=== PATIENT | male | born 1975 | race Caucasian/White ===

== ENCOUNTER → 2018-02-24 07:14 | Outpatient (CLI) | payer OTHER, SELFPAY ==
[2018-02-24 09:12] LABS: Add Manual Diff / Slide Review NO; Basophils Percent Auto 0.7 % (0-2); Eosinophils Percent Auto 8.5 % (2-4); Hematocrit 43.8 % (41-53); Hemoglobin 14.9 g/dL (13.5-17.5); Lymphocytes Percent Auto 34.2 % (25-40); Monocytes Percent Auto 12.2 % (3-14); Neutrophils Absolute Auto 2000 /uL (3000-5900); Neutrophils Percent Auto 44.4 % (50-75); Platelet Count 210 X10^3/uL (150-400); Red Blood Cell Count 4.81 X10^6/uL (4.5-5.9); Red Cell Distribution Width 13.3 % (11.6-14.8); White Blood Cell Count 4.6 X10^3/uL (4.5-11.0)
[2018-02-24 09:36] LABS: Alanine Aminotransferase 44 IU/L (21-72); Albumin 4.3 g/dL (3.5-5.0); Albumin Globulin Ratio 1.6 (1.0-2.8); Alkaline Phosphatase 63 U/L (38-126); Aspartate Aminotransferase 28 IU/L (17-59); BUN Creatinine Ratio 17.8 (6-22); Bilirubin Total 0.8 mg/dL (0.2-1.3); Blood Urea Nitrogen 16 mg/dL (9-20); Calcium 8.8 mg/dL (8.4-10.2); Carbon Dioxide 29 mmol/L (22-32); Chloride 103 mmol/L (98-107); Cholesterol 172 mg/dL (140-199); Estimated Glomerular Filt Rate > 60.0 mL/min (>60); Globulin 2.7 g/dL (1.7-4.1); Glucose 94 mg/dL (70-100); HDL Cholesterol 54 mg/dL (40-60); HEMOLYSIS < 15 (0-50); LDL Cholesterol Calculated 107 mg/dL (<100); Potassium 4.1 mmol/L (3.4-5.1); Sodium 142 mmol/L (137-145); Triglycerides 56 mg/dL (35-150)
[2018-02-24 10:43] LABS: TSH w/ Reflex to FT4 1.33 uIU/mL (0.47-4.68)
[2018-02-25 10:16] LABS: Prostate Specific Antigen Scrn 0.661 ng/mL (0.1-4.0)
== END ==
PROVIDERS: PCP Family Medicine; Visit Provider Family Medicine
DX: Z12.5 Encounter for screening for malignant neoplasm of prostate (principal); E78.5 Hyperlipidemia, unspecified; I10 Essential (primary) hypertension
CPT/HCPCS: 36415; 80053; 80061; 84443; 85025; G0103

== ENCOUNTER → 2019-03-14 07:11 | Outpatient (CLI) | payer OTHER, SELFPAY ==
--- NOTE | 2019-03-14 07:16 | DI.US.S_ITS ---
PROCEDURE: US ABDOMEN LIMITED INDICATIONS: abd wall bulge RLQ, r/o hernia TECHNIQUE: Real-time focused scanning was performed of the inguinal region, with image documentation. COMPARISON: None. FINDINGS: No right inguinal hernia or other right groin abnormalities. IMPRESSION: No right inguinal hernia. Dictated by: Milan VALDOVINOS Interpreted: Saida Canada MD on 03/14/2019 at 9:59 Approved by: Saida Canada MD, PhD on 03/14/2019 at 11:36
== END ==
PROVIDERS: Family Provider Family Medicine; PCP Family Medicine; Visit Provider Nurse Practitioner
DX: R19.03 Right lower quadrant abdominal swelling, mass and lump (principal)
CPT/HCPCS: 76705

== ENCOUNTER → 2019-03-31 07:05 | Outpatient (CLI) | payer OTHER, SELFPAY ==
[2019-03-31 08:08] LABS: Alanine Aminotransferase 36 IU/L (<50); Albumin 4.5 g/dL (3.5-5.0); Albumin Globulin Ratio 1.7 (1.0-2.8); Alkaline Phosphatase 60 U/L (38-126); Aspartate Aminotransferase 32 IU/L (17-59); Bilirubin Total 1.3 mg/dL (0.2-1.3); Blood Urea Nitrogen 18 mg/dL (9-20); Calcium 9.3 mg/dL (8.4-10.2); Carbon Dioxide 30 mmol/L (22-32); Chloride 103 mmol/L (98-107); Cholesterol 296 mg/dL (140-199); Estimated Glomerular Filt Rate > 60.0 mL/min (>60); Globulin 2.6 g/dL (1.7-4.1); Glucose 86 mg/dL (70-100); HDL Cholesterol 72 mg/dL (40-60); HEMOLYSIS < 15 (0-50); LDL Cholesterol Calculated 207 mg/dL (<100); Potassium 4.2 mmol/L (3.4-5.1); Sodium 138 mmol/L (137-145); Total Protein 7.1 g/dL (6.3-8.2); Triglycerides 83 mg/dL (35-150)
== END ==
PROVIDERS: PCP Family Medicine; Visit Provider Family Medicine
DX: E78.5 Hyperlipidemia, unspecified (principal); I10 Essential (primary) hypertension
CPT/HCPCS: 36415; 80053; 80061

== ENCOUNTER 2019-04-05 12:55 | Day surgery (SDC) | payer OTHER, SELFPAY ==
[2019-03-30 07:56] VITALS: BMI 23.6
[2019-04-05] VITALS (8 sets, daily range): BP systolic 114–151; BP diastolic 66–96; PULSE 62–74; RESP 10–18; TEMP 36.1–36.3; O2SAT 97–100; BMI 23.6
[2019-04-05] MEDS: LACTATED RINGERS 1,000 ML 42 ML IV (13:35)
--- NOTE | 2019-04-05 14:05 | PM.PREOP ---
Pre-operative Note Interval Note History & Physical reviewed/Exam performed by Physician: Yes Changes to H&P: No
[2019-04-05] MEDS: CLINDAMYCIN 900 MG/50 ML PIGGYBACK 50 MG IV (14:30)
[2019-04-05] MEDS: BUPIVACAINE 0.25% (PF) VIAL 30 ML INJ (14:56)
--- NOTE | 2019-04-05 15:00 | SUR.OPER ---
Supine on padded OR bed, head on pillow, arms padded with gel pads and secured at sides, legs uncrossed, safety belt at thigh, tape over blanket over lower legs.
[2019-04-05] MEDS: LACTATED RINGERS 1,000 ML 100 ML IV (15:25)
--- NOTE | 2019-04-05 15:48 | PM.OP.1 ---
Operative Date/Time/Diagnoses Date of procedure: 04/05/19 Time of procedure: 15:49 Pre-op diagnosis: right inguinal hernia Post-op diagnosis: same Procedure & Clinicians Procedure: Laparoscopic transabdominal preperitoneal repair of right inguinal hernia with mesh Same procedure as scheduled: Yes Indications: This is a 43-year-old male who developed a symptomatic right inguinal hernia and presented for elective laparoscopic repair Surgeon: Zaid Elizondo Yes if Unassisted: Yes Anesthesia Type: General Operative Notes Findings: Right indirect hernia defect. No left inguinal hernia Estimated Blood Loss (mL): 10 Procedure in detail: The patient was brought to the operating room and placed supine on the table. Bilateral sequential compression devices were applied. General anesthesia was induced and they were intubated with an endotracheal tube. A dela cruz cath was placed in sterile fashion. They received 2 g ancef prior to skin incision. They were prepped and draped in sterile fashion. A time out was performed to ensure the correct patient, procedure and necessary equipment within the operating room. The skin was infiltrated with 0.25% bupivicaine. A 1 cm supra umbilical midline incision was made. The umbilical stalk was elevated the fascia sharply incised and the abdomen entered traumatically. A 10mm balloon port was placed and pneumoperitoneum was established at 15mm Hg. Insepction of the abdomen demonstrated no evidence of injury upon entry. Two 5 mm ports were then placed under direct visualization in the right and left lower quadrant lateral to the rectus muscle. A right indirect inguinal hernia defect was present, there was no significant left inguinal hernia. The vas deferns the spermatic vessels were identified and protected. The peritoneum 4 cm superior to the deep inguinal ring between the medial umbilical ligament and the anterior superior iliac spine was incised. The peritoneal flap was retracted and the preperitoneal tissue was dissected off the flap beginning lateral to the inferior epigastric artery and towards the ASIS and to posterior limit of the psoas muscle to develop the lateral aspect of the pocket. Next the peritoneum medial to the inferior epigastric was mobilized towards the median umbilical ligament to develop the medial aspect of the pocket and the direct defect space. The space of Retzius was fully dissected such that the Isaak's ligmament and the pubic symphysis were visible. Next, the peritoneum was mobilized off the the spermatic vessels and vas deferns and fully exposed to the point where the vas deferens intersects with the medial umbilical ligament and the indirect hernia was reduced. A medium Bard 3D Max mesh was then placed into the abdomen and positioned such that the myopectineal orifice was completely covered with good overlap on all sides. The mesh was anchored to the pubic tubercle and to Isaak?s ligament. The peritoneal flap was then repositioned back to its original position and tacks were used to anchor it in position such that no bowel could herniate into the preperitoneal space. The area was examined for hemostasis. The 5mm trocars were removed under direct visualization and pneumoperitoneum was deflated through the umbilical trocar, The fascia at the umbilicus was closed with 0-Vicryl in figure of 8 fashion, skin closed with 4-0 Monocyl followed by Dermabond. The sponge and instrument count at the end of the case was correct. Both testicles were entirely within the scrotum at the end of the case. The patient emerged from anesthsia was extubated and transferred to recovery in stable condition. Complications: none Post-operative Condition: stable Disposition: same day surgery
[2019-04-05] MEDS: OXYCODONE/ACETAMINOPHEN 5/325 TABLET 1 TAB PO (16:05)
== END 2019-04-05 16:52 | disposition home or self-care (01) ==
PROVIDERS: Family Provider Family Medicine; PCP Family Medicine; Visit Provider Surgery
PROC: 0YQ54ZZ Repair Right Inguinal Region, Percutaneous Endoscopic Approach (ICD-10-PCS; CPT 49650; principal; 2019-04-05 14:15)
DX: K40.90 Unilateral inguinal hernia, without obstruction or gangrene, not specified as recurrent (principal); I10 Essential (primary) hypertension; E78.5 Hyperlipidemia, unspecified
CPT/HCPCS: 49650; C1781; J1100; J2250; J2405; J2704; J3010

== ENCOUNTER → 2019-06-29 06:59 | Outpatient (CLI) | payer OTHER, SELFPAY ==
[2019-06-29 08:38] LABS: Cholesterol 179 mg/dL (140-199); HDL Cholesterol 57 mg/dL (40-60); LDL Cholesterol Calculated 111 mg/dL (<100); Triglycerides 53 mg/dL (35-150)
--- NOTE | 2019-06-29 08:59 | DI.US.S_ITS ---
PROCEDURE: US ABDOMEN LIMITED INDICATIONS: RIGHT GROIN POST OP SEROMA VS RECCURENT HERNIA TECHNIQUE: Real-time focused scanning was performed of the abdomen, with image documentation. COMPARISON: [facility], , ABDOMEN LIMITED, 03/14/2019, 7:40. FINDINGS: At the area of clinical concern at the site of the clinical swelling within the right groin, there is a hernia seen, which contains bowel. While supine, the hernia contents move with Valsalva maneuver. Incidental note is made of nonenlarged lymph nodes within this region. IMPRESSION: Recurrent hernia, with contains bowel. Dictated by: Hardik Morris M.D. on 06/29/2019 at 13:48 Approved by: Hardik Morris M.D. on 06/29/2019 at 13:50
== END ==
LOC: LAB 07:01 → US 07:09
PROVIDERS: Family Provider Family Medicine; PCP Family Medicine; Referring Provider Family Medicine; Visit Provider Surgery
DX: R10.31 Right lower quadrant pain (principal); K40.91 Unilateral inguinal hernia, without obstruction or gangrene, recurrent; E78.5 Hyperlipidemia, unspecified
CPT/HCPCS: 36415; 76705; 80061

== ENCOUNTER 2019-07-25 11:21 | Day surgery (SDC) | payer OTHER, SELFPAY ==
[2019-07-25] VITALS (7 sets, daily range): BP systolic 88–132; BP diastolic 47–77; PULSE 67–76; RESP 11–16; TEMP 36.3–36.8; O2SAT 96–100; BMI 23.6
[2019-07-25] MEDS: LACTATED RINGERS 1,000 ML 42 ML IV (11:54)
--- NOTE | 2019-07-25 14:41 | PM.PREOP ---
Pre-operative Note Interval Note History & Physical reviewed/Exam performed by Physician: Yes Changes to H&P: No
[2019-07-25] MEDS: CLINDAMYCIN 900 MG/50 ML PIGGYBACK 50 MG IV (14:57)
--- NOTE | 2019-07-25 15:16 | SUR.OPER ---
Supine on padded OR bed, head on pillow, arms secured on padded arm boards at <90 degrees abduction, legs uncrossed, safety belt at thigh.
[2019-07-25] MEDS: BUPIVACAINE 0.5% (PF) VIAL 30 ML INJ (15:39)
--- NOTE | 2019-07-25 16:22 | PM.OP.1 ---
Operative Date/Time/Diagnoses Date of procedure: 07/25/19 Time of procedure: 16:22 Pre-op diagnosis: Recurrent right inguinal hernia reducible Post-op diagnosis: same ( indirect hernia) Procedure & Clinicians Procedure: repair of right inguinal hernia with plug and patch technique Same procedure as scheduled: Yes Indications: symptomatic right inguinal hernia Surgeon: Jose Armando Thompson Click Yes if Unassisted: Yes Anesthesia Type: General Operative Notes Findings: if direct sac Estimated Blood Loss (mL): 5 Blood products transfused: none Procedure in detail: The patient was placed supine on the operating room table and underwent general LMA anesthesia. He was prepped and draped in the usual fashion. A transverse incision was made overlying the Right internal ring and carried down to the level of the external oblique. this incision was a mirror incision of the scar on the opposite side. The external oblique was opened parallel with its fibers through the external ring. The cord structures were elevated. The cremaster was opened proximally and search made for an indirect sac. One was found and from surrounding structures. It was dissected to the level the deep epigastric vessels. It was opened and found to have no contents. It was suture ligated at the level the deep epigastric vessels with 2 0 silk. Distal portion was removed and the stump allowed to retract. A small plug was placed in the defect created by this persistent hernia and tacked into place with interrupted 0 Ethibond. The cremaster was closed with figure of 8 3 0 Vicryl. The floor was examined and was found to be fairly intact. A patch was placed across the floor and tacked at the pubic tubercle, the posterior lamella of the anterior rectus sheath, the ilioinguinal ligament, and superior lateral to the cord. The opening was modified as necessary to prevent tight constriction of the cord. Sutures of 0 Tycron were used to secure the mesh. The external oblique was closed with a running 3 0 Polysorb. The subcu was closed with interrupted 3 0 Polysorb. The skin was closed with a running 4 0 Polysorb subcuticular stitch and Steri-Strips. Dressing was applied, the patient was awakened, and the patient was taken to the recovery area in good condition. Complications: none Post-operative Condition: stable Disposition: PACU
[2019-07-25] MEDS: KETOROLAC 30 MG/ML VIAL IV (16:39)
--- NOTE | 2019-07-25 16:45 | SUR.PHASEI ---
awake, talking, drowsy, drinking tea, denies pain/nausea. Pleasant.
== END 2019-07-25 17:07 | disposition home or self-care (01) ==
PROVIDERS: Family Provider Family Medicine; PCP Family Medicine; Referring Provider Specialist; Visit Provider Specialist
PROC: (CPT 49505; principal; 2019-07-25 12:30)
DX: K40.91 Unilateral inguinal hernia, without obstruction or gangrene, recurrent (principal); E78.5 Hyperlipidemia, unspecified; I10 Essential (primary) hypertension
CPT/HCPCS: 49505; C1781; J1100; J1885; J2250; J2405; J2704; J3010

== ENCOUNTER → 2020-08-03 07:02 | Outpatient (CLI) | payer OTHER, SELFPAY ==
[2020-08-03 08:48] LABS: Alanine Aminotransferase 37 IU/L (<50); Albumin 4.2 g/dL (3.5-5.0); Albumin Globulin Ratio 1.8 (1.0-2.8); Alkaline Phosphatase 63 U/L (38-126); Aspartate Aminotransferase 31 IU/L (17-59); BUN Creatinine Ratio 23.9 (6-22); Bilirubin Total 0.9 mg/dL (0.2-1.3); Blood Urea Nitrogen 21 mg/dL (9-20); Calcium 8.9 mg/dL (8.4-10.2); Carbon Dioxide 27 mmol/L (22-32); Chloride 103 mmol/L (98-107); Cholesterol 175 mg/dL (140-199); Estimated Glomerular Filt Rate > 60.0 mL/min (>60); Globulin 2.3 g/dL (1.7-4.1); Glucose 85 mg/dL (70-100); HDL Cholesterol 64 mg/dL (40-60); HEMOLYSIS < 15 (0-50); LDL Cholesterol Calculated 97 mg/dL (<100); Potassium 4.4 mmol/L (3.4-5.1); Sodium 138 mmol/L (137-145); Total Protein 6.5 g/dL (6.3-8.2); Triglycerides 72 mg/dL (35-150)
== END ==
PROVIDERS: Family Provider Family Medicine; PCP Family Medicine; Referring Provider Family Medicine; Visit Provider Family Medicine
DX: E78.5 Hyperlipidemia, unspecified (principal)
CPT/HCPCS: 36415; 80053; 80061

== ENCOUNTER → 2020-08-15 12:53 | Outpatient (CLI) | payer OTHER, SELFPAY ==
[2020-08-15 15:01] LABS: Prostate Specific Antigen Scrn 0.601 ng/mL (0.1-4.0)
== END ==
PROVIDERS: Family Provider Family Medicine; PCP Family Medicine; Referring Provider Family Medicine; Visit Provider Family Medicine
DX: Z12.5 Encounter for screening for malignant neoplasm of prostate (principal)
CPT/HCPCS: 36415; G0103

== ENCOUNTER → 2021-07-10 09:08 | Outpatient (CLI) | payer OTHER, SELFPAY ==
[2021-07-10 10:47] LABS: COVID19 -Nasal RAPID Negative (Negative)
== END ==
PROVIDERS: Family Provider Family Medicine; PCP Family Medicine; Visit Provider Surgery
DX: Z01.812 Encounter for preprocedural laboratory examination (principal); Z20.822 Contact with and (suspected) exposure to COVID-19
CPT/HCPCS: 87635; C9803

== ENCOUNTER 2021-07-11 06:45 | Day surgery (SDC) | payer OTHER, SELFPAY ==
[2021-07-11] VITALS (7 sets, daily range): BP systolic 103–144; BP diastolic 62–91; PULSE 62–99; RESP 12–18; TEMP 36.3–36.8; O2SAT 94–99; BMI 23.6
--- NOTE | 2021-07-11 | PATH_ITS ---
[facility] Accession Number: [id number] . 01 Material submitted: . PART A: colon - TRANSVERSE COLON POLYP PART B: colon - ASCENDING COLON POLYP . 02 Diagnosis: A. Transverse Colon, Polyp. Biopsy: Inflammatory polyp, two fragments. . B. Ascending Colon, Polyp, Biopsy: Tubular adenoma. MRV 07/15/2021 1042 Local . 02 Electronically signed: . Susie Ortega MD, Pathologist NPI- [id number] . 01 Gross description: . Part A: TRANSVERSE COLON POLYP: Received in formalin is 1 fragment(s) of rhodes, soft tissue measuring 0.5 x 0.3 x 0.3 cm which is bisected and submitted entirely in 1 cassette(s) Part B: ASCENDING COLON POLYP: Received in formalin is 1 fragment(s) of rhodes, soft tissue measuring 0.2 x 0.1 x 0.1 cm submitted entirely in 1 cassette(s) /CPE 07/12/2021 1247 Local . 02 Pathologist provided ICD-10: D12.2 . 02 CPT . 723544, [id number] Specimen Comment: A courtesy copy of this report has been sent to [phone] Performed at: 01 [facility] [address] [facility], [place], [place] [id number] MD Harshad Mendoza MD Phone: [phone] Performed at: 02 [facility] [address] [place], [place] [id number] MD Susie Ortega MD Phone: [phone]
[2021-07-11] MEDS: LACTATED RINGERS 1,000 ML 42 ML IV (07:00)
--- NOTE | 2021-07-11 07:39 | PM.HP.1 ---
History of Present Illness History of Present Illness Date Patient Seen: 07/11/21 Time Patient Seen: 07:39 Chief complaint: SDC Narrative: Kenroy is a healthy 45-year-old man who is here for a screening colonoscopy. He has a cousin who has stage IV cancer at an early age. He denies any rectal bleeding or melena. He is in good health. Patient History Medical History (Updated 07/11/21 @ 07:40 by Marcelino Edwards MD) Constipation Headache, migraine Hyperlipidemia (2006) Hypertension (2006) Inguinal hernia Surgical History Anesthesia History of right inguinal hernia repair (~03/2019) History of vasectomy Status post hernia repair Status post right inguinal hernia repair (~07/25/19) Family & Social History Family History (Updated 08/10/20 @ 08:46 by Lu Duron DO) Brother Age: 43 Diabetes mellitus Hypertension High cholesterol Father Age: 75 Hypertension High cholesterol Prostate cancer Alcohol abuse Mother No problems noted. Social History: household members spouse Tobacco & Substance use: Smoking Status Never smoker alcohol intake former Substance Use Type marijuana Meds Home Medications and Allergies Home Medications Medication Instructions Recorded Confirmed Type lorazepam 1 mg tablet 1 mg PO Q6H PRN #60 tab 04/08/19 07/11/21 Rx lovastatin 20 mg tablet 20 mg PO DAILY #90 tab 04/23/21 07/11/21 Rx Allergies Allergy/AdvReac Type Severity Reaction Status Date / Time Penicillins Allergy Intermediate unknown Verified 07/11/21 06:58 Exam Vital Signs (past 8 hours): - 07/11/21 07:05 Temperature 97.7 F Pulse Rate 99 H Respiratory Rate 18 Blood Pressure 144/91 H Pulse Oximetry 99 Oxygen Delivery Method Room Air Const General: healthy appearing Resp Effort & Inspection: normal respiratory effort GI Inspection: normal to inspection Assessment & Plan Assessment and plan (1) Colon cancer screening: Status: Acute Plan 45-year-old man here for colon cancer screening. We reviewed the risks and benefits of colonoscopy with sedation for colon cancer screening. He would like to proceed. COVID-19 COVID-19 status: Negative Result date/Date tested (Pos, Neg/Pending): 07/10/21 Time Spent With Patient Critical Care time: I spent a total of [] minutes of critical care time on this patient's care today; this time is exclusive of procedural time.
--- NOTE | 2021-07-11 08:21 | PM.OP.COLON ---
Operative Date/Time/Diagnoses Date of procedure: 07/11/21 Time of procedure: 08:21 Pre-op diagnosis: Colon cancer screening Post-op diagnosis: same Procedure & Clinicians Study performed: Colonoscopy Same procedure as scheduled: Yes Indications: Colon cancer screening Surgeon: Marcelino Edwards Procedure Notes SCOAP/Timeout: S Procedure in detail: Procedure: The patient was brought to the endoscopy suite, placed in left lateral decubitus position. The patient was connected to monitoring devices. A time-out was performed. Sedation was administered. Once the patient was adequately sedated, a digital rectal exam was performed and was normal. The scope was then inserted and advanced to the cecum where the appendiceal orifice was identified and photographed. The scope was then slowly withdrawn over greater than 6 minutes. Mucosa was thoroughly inspected. There was a small polyp in the ascending colon removed with cold forceps. This was about 4 mm. There was a pedunculated polyp on a stalk in the proximal transverse colon which was roughly 8 mm and was removed with cold snare. There were no other lesions in the colon. The scope was retroflexed in the rectum. No abnormalities were noted. The scope was straightened and removed. The patient was awakened and brought to recovery. Versed: 8 mg Fentanyl: 150 mcg EBL: 2 mL Findings: 4 mm polyp in the ascending colon and the 8 mm pedunculated polyp in the proximal transverse colon. Scope withdrawal time: 7 Sedation minutes: 28 Post-procedure Recommendations: Will call with biopsy results Disposition: PACU
[2021-07-11] MEDS: MIDAZOLAM 5 MG/5 ML VIAL IV (08:23)
[2021-07-11] MEDS: fentaNYL 250 MCG/5 ML INJ IV (08:24)
== END 2021-07-11 09:11 | disposition home or self-care (01) ==
PROVIDERS: Family Provider Family Medicine; PCP Family Medicine; Referring Provider Surgery; Visit Provider Surgery
PROC: 0DJD8ZZ Inspection of Lower Intestinal Tract, Via Natural or Artificial Opening Endoscopic (ICD-10-PCS; CPT 45378; principal; 2021-07-11 07:45)
DX: Z12.11 Encounter for screening for malignant neoplasm of colon (principal); D12.2 Benign neoplasm of ascending colon; K51.40 Inflammatory polyps of colon without complications
CPT/HCPCS: 45385; 99152; 99153; J2250; J3010

== ENCOUNTER → 2021-09-26 06:51 | Outpatient (CLI) | payer OTHER, SELFPAY ==
[2021-09-26 08:48] LABS: Add Manual Diff / Slide Review NO; Basophils Absolute Auto 0 /uL (0-100); Eosinophils Absolute Auto 300 /uL (0-450); Eosinophils Percent Auto 7.4 % (2-4); Hematocrit 43.6 % (41-53); Hemoglobin 14.6 g/dL (13.5-17.5); Lymphocytes Absolute Auto 1600 /uL (1100-4500); Mean Corpuscular HGB Conc 33.5 % (30-36); Mean Corpuscular Hemoglobin 30.7 PG (26-34); Mean Corpuscular Volume 91.7 fL (80-100); Monocytes Absolute Auto 400 /uL (0-900); Monocytes Percent Auto 9.2 % (3-14); Neutrophils Absolute Auto 2100 /uL (1500-7000); Neutrophils Percent Auto 46.4 % (50-75); Platelet Count 196 X10^3/uL (150-400); Red Blood Cell Count 4.76 X10^6/uL (4.5-5.9); Red Cell Distribution Width 12.8 % (11.6-14.8); White Blood Cell Count 4.5 X10^3/uL (4.5-11.0)
[2021-09-26 09:22] LABS: Alanine Aminotransferase 31 IU/L (<50); Albumin 4.1 g/dL (3.5-5.0); Albumin Globulin Ratio 1.8 (1.0-2.8); Alkaline Phosphatase 62 U/L (38-126); Aspartate Aminotransferase 29 IU/L (17-59); BUN Creatinine Ratio 19.5 (6-22); Bilirubin Total 1.5 mg/dL (0.2-1.3); Blood Urea Nitrogen 17 mg/dL (9-20); Calcium 8.6 mg/dL (8.4-10.2); Carbon Dioxide 29 mmol/L (22-32); Chloride 106 mmol/L (98-107); Cholesterol 167 mg/dL (140-199); Estimated Glomerular Filt Rate > 60 mL/min (>60); Globulin 2.3 g/dL (1.7-4.1); Glucose 86 mg/dL (70-100); HDL Cholesterol 64 mg/dL (40-60); HEMOLYSIS < 15 (0-50); LDL Cholesterol Calculated 90 mg/dL (<100); Potassium 4.5 mmol/L (3.4-5.1); Sodium 139 mmol/L (137-145); Total Protein 6.4 g/dL (6.3-8.2); Triglycerides 67 mg/dL (35-150)
[2021-09-26 11:25] LABS: Appearance Urine UA CLEAR; Bilirubin Urine UA NEGATIVE (NEGATIVE); Color Urine UA YELLOW; Glucose Urine UA NEGATIVE (Negative); Ketones Urine UA NEGATIVE (NEGATIVE); Leukocyte Esterase Urine UA NEGATIVE (NEGATIVE); Nitrite Urine UA NEGATIVE (Negative); Occult Blood Urine UA NEGATIVE (Negative); Protein Urine UA NEGATIVE (Negative); Specific Gravity Urine UA 1.015 (1.000-1.035); Urobilinogen Urine UA 0.2 E.U./dL (0.2)
[2021-09-26 11:34] LABS: RBC Urine None Seen (0-5/HPF); WBC Urine None Seen (0-5/HPF)
[2021-09-26 11:35] LABS: Bacteria Urine None Seen; Culture Indicated Urine Cult Not Indicated; Urine Comments Microscopic Normal
== END ==
PROVIDERS: Family Provider Family Medicine; PCP Family Medicine; Referring Provider Family Medicine; Visit Provider Family Medicine
DX: E78.5 Hyperlipidemia, unspecified (principal); I10 Essential (primary) hypertension; R35.0 Frequency of micturition; Z12.5 Encounter for screening for malignant neoplasm of prostate
CPT/HCPCS: 36415; 80053; 80061; 81001; 85025; G0103

== ENCOUNTER → 2022-07-29 10:55 | Outpatient (CLI) | payer OTHER, SELFPAY ==
[2022-07-29 11:33] LABS: HEMOLYSIS < 15 (0-50)
[2022-07-29 11:42] LABS: Alanine Aminotransferase 37 IU/L (<50); Albumin 4.4 g/dL (3.5-5.0); Albumin Globulin Ratio 1.6 (1.0-2.8); Alkaline Phosphatase 65 U/L (38-126); Aspartate Aminotransferase 30 IU/L (17-59); BUN Creatinine Ratio 23.1 (6-22); Bilirubin Total 1.5 mg/dL (0.2-1.3); Blood Urea Nitrogen 18 mg/dL (9-20); Calcium 9.1 mg/dL (8.4-10.2); Carbon Dioxide 28 mmol/L (22-32); Chloride 101 mmol/L (98-107); Cholesterol 187 mg/dL (140-199); Estimated Glomerular Filt Rate > 60 mL/min (>60); Globulin 2.7 g/dL (1.7-4.1); Glucose 93 mg/dL (70-100); HDL Cholesterol 71 mg/dL (40-60); LDL Cholesterol Calculated 95 mg/dL (<100); Potassium 4.2 mmol/L (3.4-5.1); Sodium 137 mmol/L (137-145); Total Protein 7.1 g/dL (6.3-8.2); Triglycerides 104 mg/dL (35-150)
[2022-07-29 11:43] LABS: Hemoglobin A1C% w Est Avg Glu 5.5 % (4.0-6.0)
[2022-07-30 12:47] LABS: Varicella IgG Antibody 216 index (Immune >165)
[2022-08-01 10:04] LABS: Prostate Specific Antigen Scrn 0.762 ng/mL (0.1-4.0)
== END ==
PROVIDERS: Family Provider Family Medicine; PCP Family Medicine; Referring Provider Family Medicine; Visit Provider Family Medicine
DX: Z00.00 Encounter for general adult medical examination without abnormal findings (principal); N13.8 Other obstructive and reflux uropathy; N40.1 Benign prostatic hyperplasia with lower urinary tract symptoms; Z12.5 Encounter for screening for malignant neoplasm of prostate
CPT/HCPCS: 36415; 80053; 80061; 83036; 86787; G0103

== ENCOUNTER → 2023-07-17 07:01 | Outpatient (CLI) | payer OTHER, SELFPAY ==
[2023-07-17 08:22] LABS: Add Manual Diff / Slide Review NO; Basophils Absolute Auto 0 /uL (0-100); Basophils Percent Auto 0.8 % (0-2); Eosinophils Absolute Auto 400 /uL (0-450); Eosinophils Percent Auto 6.5 % (2-4); Hematocrit 45.9 % (41-53); Hemoglobin 15.7 g/dL (13.5-17.5); Lymphocytes Absolute Auto 1800 /uL (1100-4500); Lymphocytes Percent Auto 31.5 % (25-40); Mean Corpuscular HGB Conc 34.2 % (30-36); Mean Corpuscular Hemoglobin 30.9 PG (26-34); Mean Corpuscular Volume 90.4 fL (80-100); Monocytes Absolute Auto 500 /uL (0-900); Neutrophils Absolute Auto 2900 /uL (1500-7000); Neutrophils Percent Auto 52.2 % (50-75); Platelet Count 198 X10^3/uL (150-400); Red Blood Cell Count 5.08 X10^6/uL (4.5-5.9); Red Cell Distribution Width 12.8 % (11.6-14.8); White Blood Cell Count 5.6 X10^3/uL (4.5-11.0)
[2023-07-17 10:17] LABS: Blood Urea Nitrogen 12 mg/dL (9-20); Calcium 8.9 mg/dL (8.4-10.2); Carbon Dioxide 29 mmol/L (22-32); Chloride 106 mmol/L (98-107); Cholesterol 198 mg/dL (140-199); Estimated Glomerular Filt Rate > 60 mL/min (>60); Glucose 87 mg/dL (70-100); HDL Cholesterol 59 mg/dL (40-60); HEMOLYSIS < 15 (0-50); LDL Cholesterol Calculated 117 mg/dL (<100); Potassium 4.6 mmol/L (3.4-5.1); Sodium 138 mmol/L (137-145); Triglycerides 110 mg/dL (35-150)
[2023-07-17 10:48] LABS: Prostate Specific Antigen 0.863 ng/mL (0.10-4.00)
== END ==
PROVIDERS: Family Provider Family Medicine; PCP Family Medicine; Referring Provider Family Medicine; Visit Provider Family Medicine
DX: Z00.00 Encounter for general adult medical examination without abnormal findings (principal); N40.1 Benign prostatic hyperplasia with lower urinary tract symptoms; N13.8 Other obstructive and reflux uropathy; E78.2 Mixed hyperlipidemia; I10 Essential (primary) hypertension; Z80.42 Family history of malignant neoplasm of prostate
CPT/HCPCS: 36415; 80048; 80061; 84153; 85025

== ENCOUNTER → 2024-08-03 13:21 | Outpatient (CLI) | payer OTHER, SELFPAY ==
[2024-08-03 15:01] LABS: Alanine Aminotransferase 33 IU/L (<50); Albumin 4.5 g/dL (3.5-5.0); Albumin Globulin Ratio 1.6 (1.0-2.8); Alkaline Phosphatase 53 U/L (38-126); Aspartate Aminotransferase 35 IU/L (17-59); BUN Creatinine Ratio 18.7 (6-22); Bilirubin Total 1.4 mg/dL (0.2-1.3); Blood Urea Nitrogen 17 mg/dL (9-20); Calcium 8.7 mg/dL (8.4-10.2); Carbon Dioxide 26 mmol/L (22-32); Chloride 101 mmol/L (98-107); Cholesterol 178 mg/dL (140-199); Estimated Glomerular Filt Rate > 60 mL/min (>60); Globulin 2.8 g/dL (1.7-4.1); Glucose 104 mg/dL (70-100); HDL Cholesterol 57 mg/dL (40-60); HEMOLYSIS < 15 (0-50); LDL Cholesterol Calculated 103 mg/dL (<100); Potassium 4.2 mmol/L (3.4-5.1); Sodium 137 mmol/L (137-145); Total Protein 7.3 g/dL (6.3-8.2); Triglycerides 89 mg/dL (35-150)
[2024-08-03 15:30] LABS: Prostate Specific Antigen Scrn 0.811 ng/mL (0.1-4.0)
[2024-08-04 15:20] LABS: HIV 1 & 2 Ab/Ag 4th Gen Combo NEGATIVE (NEGATIVE); Hep C Virus Ab w/Reflex Quant NEGATIVE s/c (NEGATIVE)
== END ==
PROVIDERS: PCP Family Medicine; Referring Provider Family Medicine; Visit Provider Family Medicine
DX: Z00.00 Encounter for general adult medical examination without abnormal findings (principal); I10 Essential (primary) hypertension; E78.5 Hyperlipidemia, unspecified; Z80.42 Family history of malignant neoplasm of prostate; Z12.5 Encounter for screening for malignant neoplasm of prostate
CPT/HCPCS: 36415; 80053; 80061; 86803; 87389; G0103